=== PATIENT | female | born 1975 | race Caucasian/White ===

== ENCOUNTER 2018-05-24 19:54 | Emergency (ER) | payer BC, MEDICAID ==
[~2018-05-24] VITALS: Ht 152.4 cm; Wt 83.9 kg
--- NOTE | 2018-05-24 20:12 | NUR ---
[id number] FROM HOME C/C GENERALIZED ABD PAIN D/T BLOATING AND GAS. 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 +N,-V,-D. LBM TODAY MORNING, NORMAL. SKIN INTACT, NO ACUTE DISTRESS NOTED. AOX4, AMB, VSS, RR EVEN AND UNLABORED. FAMILY AT BEDSIDE. READY FOR EVAL.
[2018-05-24] MEDS: IV NS 0.9% 1,000 ML BAG IV ONE (20:27)
[2018-05-24 20:30] LABS: BASOPHILS % (AUTO) 0.6 % (0.0-2.0); EOSINOPHILS % (AUTO) 1.4 % (0.0-6.0); HEMATOCRIT 41 % (33-45); HEMOGLOBIN 13.9 g/dL (11.5-14.8); LYMPHOCYTES # (AUTO) 0.8 /CMM (0.8-4.8); LYMPHOCYTES % (AUTO) 11.8 % (20.0-44.0); MEAN CORPUSCULAR HGB CONC 34 g/dl (31.0-36.0); MEAN CORPUSCULAR VOLUME 90 fL (82-100); MONOCYTES # (AUTO) 0.3 /CMM (0.1-1.30); MONOCYTES % (AUTO) 4.7 % (2.0-12.0); NEUTROPHILS # (AUTO) 5.7 /CMM (1.8-8.9); NEUTROPHILS % (AUTO) 81.5 % (43.0-81.0); PLATELET COUNT (AUTO) 222 /CMM (150-450); RED BLOOD CELL COUNT(AUTO) 4.53 MIL/uL (4.0-5.2)
[2018-05-24] MEDS: FAMOTIDINE/PF INJ 20 MG/2 ML VIAL IV ONE (20:30)
[2018-05-24] MEDS: KETOROLAC TROMETHAMINE INJ 30 MG/ML VIAL IV ONE (20:30)
[2018-05-24] MEDS: ONDANSETRON HCL/PF 4 MG/2 ML VIAL IVP ONE (20:30)
[2018-05-24 20:38] LABS: CALCIUM, SERUM 8.9 mg/dL (8.5-10.1); CREATININE 0.7 mg/dL (0.6-1.3); POTASSIUM 3.7 mmol/L (3.5-5.1)
[2018-05-24 20:45] LABS: ALBUMIN 4.1 g/dL (3.4-5.0); BILIRUBIN,DIRECT 0.1 mg/dL (0.0-0.2); BILIRUBIN,TOTAL 0.4 mg/dL (0.2-1.0); TOTAL PROTEIN, SERUM 7.5 g/dL (6.4-8.2)
[2018-05-24] MEDS ORDERED: CT SWABBABLE VALVE TRANS SET 1 EA INFUS.SET MC ONE (21:16)
[2018-05-24] MEDS ORDERED: IOHEXOL-300 100 ML VIAL IV ONE (21:16)
[2018-05-24] MEDS ORDERED: IV NS 0.9% 250 ML IV ONE (21:17)
--- NOTE | 2018-05-24 21:30 | NUR ---
PT REFUSING MEDS. STATES SHE'S FEELING MUCH BETTER AND READY FOR DISCHARGE. AGREES TO CT SCAN FIRST.
--- NOTE | 2018-05-24 22:01 | NUR ---
IV removed. Catheter intact and site benign. Pressure and 4x4 applied to site. No bleeding noted. Patient discharged to home in stable condition. Written and verbal after care instructions given. Patient verbalizes understanding of instruction.
[2018-05-24 22:25] VITALS: BP 111/76
== END 2018-05-24 22:01 | disposition home or self-care (01) ==
LOC: ER 19:57
DX: R10.84 Generalized abdominal pain (principal); Z98.890 Other specified postprocedural states; Z88.0 Allergy status to penicillin; Z60.2 Problems related to living alone
CPT/HCPCS: 36415; 74177; 80048; 80076; 83690; 85025; 99284; J7030; J7050; Q9967